=== PATIENT | male | born 1940 | race Caucasian/White ===

== ENCOUNTER → 2020-04-09 13:27 | Outpatient (CLI) | payer MEDICARE, OTHER, SELFPAY ==
--- NOTE | 2020-04-09 | DI.ECHO.S_ITS ---
[place] [facility]---------+ [facility] +---------+ : : [address] : [address] : : : : [id number] : : : : Phone: [phone] : : [phone] +---------+ Echocardiogram Report + + :Name: MIESHA OCONNOR Study Date: 04/09/2020 Height: 67 in : :[facility] ReadingLocation: Weight: 220 lb : : Gender: Male BSA: 2.1 m2 : :: 1940 Age: 80 yrs BP: 135/88 mmHg: :Reason For Study: CARDIOMYOPATHY : :Ordering Physician: JULI, : :PANCHO Performed By: Alis Higgins : :Referring: PANCHO RANDALL : + + Interpretation Summary 1) Normal left ventricular size with moderately to severely reduced systolic function (EF 30-35%). 2) Mildly enlarged right ventricle with mildly reduced function. Pacemaker lead in the RV. 3) Severe left atrial enlargement. 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 5) No prior Echo available for comparison. Procedure: A two-dimensional transthoracic echocardiogram with color flow and Doppler was performed. The study quality was technically adequate. There is no prior echocardiogram noted for this patient. The heart rate ranged between 72-98 bpm during the study. Left Ventricle: The left ventricle is normal in size. Left ventricular wall thickness is mildly increased. The ejection fraction is estimated to be 30- 35%. There is moderate to severe global hypokinesis of the left ventricle. Right Ventricle: There is a pacemaker lead in the right ventricle. The right ventricle is mildly dilated. Right ventricular systolic function is mildly reduced. Atria: The left atrium is severely dilated. The right atrium is mild to moderately dilated. There is no Doppler evidence for an interatrial shunt. Mitral Valve: There is severe mitral annular calcification. The mitral valve leaflets are moderately calcified. There is mild mitral regurgitation. Aortic Valve: There is a bioprosthetic aortic valve. The peak aortic velocity is 1.5 m/sec. The aortic valve mean gradient is 5 mmHg. There is mild aortic regurgitation. Eccentric regurgitant jet. Tricuspid Valve: The tricuspid valve is normal in structure and function. There is mild tricuspid regurgitation. Pulmonary artery pressures cannot be estimated because of the lack of a measurable TR jet velocity but the IVC suggests a CVP of around 8 mmHg. Pulmonic Valve: The pulmonic valve leaflets are thin and pliable; valve motion is normal. There is no pulmonic valvular regurgitation. Great Vessels: The aortic root is not well visualized. The IVC is dilated (diameter is greater than 2.1 cm) yet it collapses greater than 50% with a sniff. This suggests a right atrial pressure of 8 mm Hg. Pericardium/ Pleura There is no pericardial effusion. There is no pleural effusion. MMode/2D Measurements & Calculations LVIDd: 5.7 cm LVOT diam: 2.2 cm LVIDs: 4.8 cm FS: 15.6 % EPSS: 2.1 cm IVSd: 1.3 cm LVPWd: 1.0 cm LV stanley. diameter/BSA (cm/m^2): 2.7 LV sys. diameter/BSA (cm/m^2): 2.3 LA A2 area: 29.4 cm2 RA long axis: 5.6 cm LA A4 area: 35.2 cm2 RA area: 23.0 cm2 LA length (vol): 6.7 cm RA vol: 80.9 ml LA vol: 130.2 ml RA : 38.4 ml/m2 LA vol index: 61.8 ml/m2 IVC diam: 2.5 cm RVD1 (basal): 4.0 cm TAPSE: 1.3 cm Doppler Measurements & Calculations Ao V2 max: 152.9 cm/sec LVOT Max Walter: 60.8 cm/sec Ao V2 mean: 109.2 cm/sec LV V1 max P.9 mmHg Ao max P.4 mmHg LV V1 VTI: 10.6 cm Ao mean P.3 mmHg DIOR(I,D): 1.4 cm2 Ao V2 VTI: 29.1 cm DIOR(V,D): 1.5 cm2 sev ratio: 0.37 DIOR indexed to BSA (cm^2/m^2): 0.65 MV E max walter: 140.5 cm/sec PA V2 max: 43.5 cm/sec MV A max walter: 32.2 cm/sec PA V2 mean: 30.1 cm/sec MV E/A: 4.4 PA mean P.41 mmHg Med Peak E' Walter: 5.6 cm/sec PA pr(Accel): 27.6 mmHg E/E' med: 25.1 Lat Peak E' Walter: 5.0 cm/sec E/E' lat: 28.0 E/e' average: 26.5 MV dec time: 0.17 sec MVA(VTI): 1.4 cm2 MV V2 mean: 89.2 cm/sec SV(LVOT): 40.0 ml MV mean P.0 mmHg MV V2 VTI: 28.0 cm Reading Physician:04:45 PM
== END ==
PROVIDERS: PCP Internal Medicine; Referring Provider Internal Medicine Cardiovascular Disease; Visit Provider Internal Medicine Cardiovascular Disease
DX: I08.3 Combined rheumatic disorders of mitral, aortic and tricuspid valves (principal); I42.9 Cardiomyopathy, unspecified; Z95.2 Presence of prosthetic heart valve; Z95.0 Presence of cardiac pacemaker
CPT/HCPCS: C8929; Q9957

== ENCOUNTER → 2020-10-12 15:40 | Outpatient (CLI) | payer MEDICARE, OTHER, SELFPAY ==
--- NOTE | 2020-10-12 15:45 | DI.ECHO.S_ITS ---
[place] +---------+ [facility] +---------+ : : [address] : [address] : : [address] : : : : [id number] : : : : Phone: [phone] : : [phone] +---------+ Echocardiogram Report + + :Name: MIESHA COONNOR Study Date: 10/12/2020 Height: 68 in : :[facility] ReadingLocation: Weight: 220 lb : : Gender: Male BSA: 2.1 m2 : :: 1940 Age: 80 yrs BP: 123/72 mmHg: :Reason For Study: CARDIOMYOPATHY : :Ordering Physician: JULI, : :PANCHO Performed By: Alis Higgins : :Referring: PANCHO RANDALL : + + Interpretation Summary 1) Mildly enlarged left ventricle with moderately to severely reduced systolic function (EF 30-35%). 2) Mildly to moderately enlarged right ventricle with mildly reduced systolic function. There is a pacemaker lead in the right ventricle. 3) Severe left atrial enlargement noted. 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 Mean gradient across the bioprosthesis is 8.4mmHg. Mild aortic regurgitation present. 5) Compared to the Echo done 04/09/2020, no significant change. Procedure: A two-dimensional transthoracic echocardiogram with color flow and Doppler was performed. The study quality was technically adequate. Comparison is made with the echocardiogram of 04/09/2020. A contrast injection of Definity was performed to improve assessment of LV function. Frequent ectopy. The heart rate ranged between 60-114 bpm during the study. Left Ventricle: The estimated left ventricular end diastolic volume is 170 ml. The left ventricle is mildly dilated. The ejection fraction is estimated to be 30-35%. There is moderate to severe global hypokinesis of the left ventricle. Right Ventricle: The right ventricle is mild to moderately dilated. There is a pacemaker lead in the right ventricle. Right ventricular systolic function is mildly reduced. Atria: The left atrium is severely dilated. Right atrial size is normal. There is no Doppler evidence for an interatrial shunt. Mitral Valve: There is severe mitral annular calcification. The mitral valve leaflets are moderately calcified. The mitral valve mean gradient is 5.9 mmHg. There is mild mitral regurgitation. Aortic Valve: There is a prosthetic aortic valve. The prosthetic aortic valve is well-seated. The prosthetic aortic valve appears to open well. There is no aortic valve stenosis. There is mild aortic regurgitation. Tricuspid Valve: The tricuspid valve is normal in structure and function. There is mild tricuspid regurgitation. The right ventricular systolic pressure is estimated to be at least 44 mmHg based on an estimated right atrial pressure of 8 mm Hg. Pulmonic Valve: The pulmonic valve leaflets are thin and pliable; valve motion is normal. There is no pulmonic valvular regurgitation. Great Vessels: The aortic root is normal size. The ascending aorta is mildly enlarged. The IVC is dilated (diameter is greater than 2.1 cm) yet it collapses greater than 50% with a sniff. This suggests a right atrial pressure of 8 mm Hg. Pericardium/ Pleura There is no pericardial effusion. There is no pleural effusion. MMode/2D Measurements & Calculations LVIDd: 5.5 cm LVOT diam: 2.1 cm LVIDs: 4.8 cm asc Aorta Diam: 3.5 cm FS: 12.8 % Ao Arch Diam (Prox Trans): 2.5 cm EPSS: 1.9 cm IVSd: 1.1 cm LVPWd: 1.00 cm LV stanley. diameter/BSA (cm/m^2): 2.6 LV sys. diameter/BSA (cm/m^2): 2.3 LA A2 area: 30.1 cm2 RA long axis: 5.7 cm LA A4 area: 35.6 cm2 RA area: 21.0 cm2 LA length (vol): 6.9 cm RA vol: 65.8 ml LA vol: 132.0 ml RA : 30.9 ml/m2 LA vol index: 62.0 ml/m2 IVC diam: 2.6 cm RVD1 (basal): 4.5 cm TAPSE: 1.9 cm Doppler Measurements & Calculations Ao V2 max: 192.2 cm/sec LVOT Max Walter: 99.3 cm/sec Ao V2 mean: 135.2 cm/sec LV V1 max P.0 mmHg Ao max P.8 mmHg LV V1 VTI: 16.6 cm Ao mean P.4 mmHg DIOR(I,D): 1.5 cm2 Ao V2 VTI: 36.6 cm DIOR(V,D): 1.8 cm2 sev ratio: 0.45 DIOR indexed to BSA (cm^2/m^2): 0.73 MV E max walter: 160.1 cm/sec TR max walter: 297.9 cm/sec MV A max walter: 1.6 cm/sec TR max P.5 mmHg MV E/A: 100.1 Med Peak E' Walter: 5.5 cm/sec E/E' med: 29.0 Lat Peak E' Walter: 7.0 cm/sec E/E' lat: 23.0 E/e' average: 26.0 MV dec time: 0.15 sec MVA(VTI): 1.5 cm2 MV V2 mean: 104.0 cm/sec SV(LVOT): 56.7 ml MV mean P.8 mmHg MV V2 VTI: 39.0 cm Reading Physician:07:15 PM
== END ==
PROVIDERS: PCP Internal Medicine; Referring Provider Internal Medicine Cardiovascular Disease; Visit Provider Internal Medicine Cardiovascular Disease
DX: I08.3 Combined rheumatic disorders of mitral, aortic and tricuspid valves (principal); I42.9 Cardiomyopathy, unspecified; I77.89 Other specified disorders of arteries and arterioles; Z95.0 Presence of cardiac pacemaker; Z95.2 Presence of prosthetic heart valve
CPT/HCPCS: C8929; Q9957

== ENCOUNTER → 2021-03-16 13:21 | Outpatient (CLI) | payer MEDICARE, OTHER, SELFPAY ==
--- NOTE | 2021-03-16 13:23 | DI.ECHO.S_ITS ---
[place] +---------+ [facility] +---------+ : : [address] : : : : [address] : : : : [phone] : : : : Phone: [phone] : : [phone] +---------+ Echocardiogram Report + + :Name: MIESHA OCONNOR Study Date: 03/16/2021 Height: 68 in : :[facility] ReadingLocation: Weight: 202 lb : : Gender: Male BSA: 2.1 m2 : :: 1940 Age: 81 yrs BP: 113/77 mmHg: :Reason For Study: CARDIOMYOPATHY : :Ordering Physician: JULI, : :PANCHO Performed By: Alis Higgins : :Referring: PANCHO RANDALL : + + Interpretation Summary Limited Echo: 1) Mildly enlarged left ventricle with moderately to severely reduced systolic function (EF 30-35%). 2) There is a significant dyssynchronous contraction pattern due to the paced rhythm. Rest of the LV has hypokinesis. 3) The right ventricle is mild to moderately dilated. Right ventricular systolic function is mildly reduced. There is a pacemaker lead in the right ventricle. 4) Compared to the Echo done 10/12/2020, no significant change. Procedure: A two-dimensional transthoracic echocardiogram with color flow and Doppler was performed in limited views only to assess ejection fraction.. Left Ventricle: The estimated left ventricular end diastolic volume is 124 ml. The left ventricle is mildly dilated. The ejection fraction is estimated to be 30-35%. There is moderate global hypokinesis of the left ventricle. There is a significant dyssynchronous contraction pattern due to the paced rhythm. Right Ventricle: The right ventricle is mild to moderately dilated. There is a pacemaker lead in the right ventricle. Right ventricular systolic function is mildly reduced. Atria: The left atrium is severely dilated. Mitral Valve: There is severe mitral annular calcification. Great Vessels: The IVC is of normal diameter and collapses greater than 50% with a sniff. This suggests a low right atrial pressure of 3 mm Hg. Pericardium/ Pleura There is no pericardial effusion. There is no pleural effusion. MMode/2D Measurements & Calculations LVIDd: 6.1 cm LA A2 area: 26.6 cm2 LVIDs: 5.3 cm LA A4 area: 33.5 cm2 FS: 12.7 % LA length (vol): 7.0 cm IVSd: 0.93 cm LA vol: 108.4 ml LVPWd: 0.88 cm LA vol index: 52.8 ml/m2 LV stanley. diameter/BSA (cm/m^2): 3.0 LV sys. diameter/BSA (cm/m^2): 2.6 RA long axis: 5.7 cm RVD1 (basal): 4.7 cm RA area: 26.2 cm2 RVD2 (mid): 4.6 cm RA vol: 102.7 ml TAPSE: 1.6 cm RA : 50.0 ml/m2 IVC diam: 1.8 cm Reading Physician:10:01 AM
== END ==
PROVIDERS: PCP Internal Medicine; Referring Provider Internal Medicine Cardiovascular Disease; Visit Provider Internal Medicine Cardiovascular Disease
DX: I34.8 Other nonrheumatic mitral valve disorders (principal); I42.9 Cardiomyopathy, unspecified; Z95.0 Presence of cardiac pacemaker
CPT/HCPCS: 93307

== ENCOUNTER → 2021-07-14 15:51 | Outpatient (CLI) | payer MEDICARE, OTHER, SELFPAY ==
--- NOTE | 2021-07-14 | DI.ECHO.S_ITS ---
[place] [facility]---------+ [facility] +---------+ : : [address] : [address] : : : : [id number] : : : : Phone: [phone] : : [phone] +---------+ Echocardiogram Report + + :Name: MIESHA OCONNOR Study Date: 07/14/2021 Height: 68 in : :[facility] ReadingLocation: Weight: 220 lb : : Gender: Male BSA: 2.1 m2 : :: 1940 Age: 81 yrs BP: 140/89 mmHg: :Reason For Study: CARDIOMYOPATHY : :Ordering Physician: JULI, : :PANCHO Performed By: Alis Higgins : :Referring: PANCHO RANDALL : + + Interpretation Summary 1) Mildly dilated left ventricle with severely reduced systolic function (EF 25-30%). 2) The right ventricle is moderately dilated and has moderately reduced function. There is a pacemaker lead in the right ventricle. 3) Severely enlarged left atrium. 4) There is a prosthetic aortic valve that is well seated and opens well (mean gradient 6.6mm Hg). There is mild aortic regurgitation. 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 6) Ventricular pacing with HR in the 50s present during the study. 7) Compared to the Echo done 03/16/2021, LVEF has decreased from 30-35% to 25- 30% on this study. Procedure: A two-dimensional transthoracic echocardiogram with color flow and Doppler was performed. The study quality was technically adequate. Comparison is made with the echocardiogram of 03/16/2021. The patient has a paced rhythm. The heart rate ranged between 45-55 bpm during the study. Left Ventricle: The left ventricle is mildly dilated. The estimated left ventricular end diastolic volume is 152 ml. Left ventricular wall thickness is mildly increased. The ejection fraction is estimated to be 25-30%. There is a mild dyssynchronous contraction pattern due to the paced rhythm. Diastolic function could not be accurately assessed due to paced rhythm. Right Ventricle: The right ventricle is moderately dilated. There is a pacemaker lead in the right ventricle. Right ventricular systolic function is moderately reduced. Atria: The left atrium is severely dilated. The right atrium is mildly dilated. There is no Doppler evidence for an interatrial shunt. Mitral Valve: The mitral valve leaflets are moderately calcified. There is moderate to severe mitral annular calcification. An annuloplasty ring is noted in the mitral position. The mitral valve mean gradient is 3.9 mmHg. There is mild mitral regurgitation. Aortic Valve: There is a prosthetic aortic valve. There is no aortic valve stenosis. There is mild aortic regurgitation. Tricuspid Valve: Tricuspid leaflets are thickened. There is mild tricuspid regurgitation. The right ventricular systolic pressure is estimated to be at least 46 mmHg based on an estimated right atrial pressure of 8 mm Hg. Pulmonic Valve: There is mild pulmonic regurgitation. Great Vessels: The aortic root is normal size. The dimensions of the ascending aorta are normal. The IVC is dilated (diameter is greater than 2.1 cm) yet it collapses greater than 50% with a sniff. This suggests a right atrial pressure of 8 mm Hg. Pericardium/ Pleura There is no pericardial effusion. There is no pleural effusion. MMode/2D Measurements & Calculations LVIDd: 5.6 cm LVOT diam: 2.0 cm LVIDs: 5.1 cm Ao root diam: 3.1 cm FS: 7.9 % asc Aorta Diam: 3.4 cm EPSS: 2.3 cm Ao Arch Diam (Prox Trans): 2.4 cm IVSd: 0.98 cm LVPWd: 1.2 cm LV stanley. diameter/BSA (cm/m^2): 2.6 LV sys. diameter/BSA (cm/m^2): 2.4 LA A2 area: 36.5 cm2 RA long axis: 5.4 cm LA A4 area: 35.5 cm2 RA area: 22.3 cm2 LA length (vol): 6.9 cm RA vol: 78.3 ml LA vol: 159.0 ml RA : 36.8 ml/m2 LA vol index: 74.7 ml/m2 IVC diam: 2.9 cm RVD1 (basal): 5.1 cm RVD2 (mid): 4.5 cm TAPSE: 1.3 cm Doppler Measurements & Calculations Ao V2 max: 151.6 cm/sec LVOT Max Walter: 67.0 cm/sec Ao V2 mean: 107.5 cm/sec LV V1 max P.8 mmHg Ao max P.4 mmHg LV V1 VTI: 11.3 cm Ao mean P.6 mmHg DIOR(I,D): 1.4 cm2 Ao V2 VTI: 25.6 cm DIOR(V,D): 1.4 cm2 sev ratio: 0.44 DIOR indexed to BSA (cm^2/m^2): 0.64 MV E max walter: 132.6 cm/sec TR max walter: 303.7 cm/sec MV A max waltre: 110.1 cm/sec TR max P.9 mmHg MV E/A: 1.2 PA V2 max: 86.0 cm/sec Med Peak E' Walter: 4.6 cm/sec PA V2 mean: 53.6 cm/sec E/E' med: 29.1 PA mean P.3 mmHg Lat Peak E' Walter: 6.8 cm/sec PA pr(Accel): 48.2 mmHg E/E' lat: 19.5 E/e' average: 24.3 MV dec time: 0.24 sec MVA(VTI): 1.5 cm2 MV V2 mean: 88.1 cm/sec SV(LVOT): 34.6 ml MV mean P.9 mmHg MV V2 VTI: 23.6 cm Reading Physician:09:27 AM
== END ==
PROVIDERS: PCP Internal Medicine; Referring Provider Internal Medicine Cardiovascular Disease; Visit Provider Internal Medicine Cardiovascular Disease
DX: I42.9 Cardiomyopathy, unspecified (principal)
CPT/HCPCS: 93306